=== PATIENT | male | born 1945 | race Caucasian/White ===

== ENCOUNTER 2017-03-23 14:29 | Inpatient (IN) | payer MEDICARE, MEDICAID ==
[~2017-03-23] VITALS: Ht 170.2 cm; Wt 69.9 kg
[2017-03-23] MEDS ORDERED: SODIUM CHLORIDE 0.9% 1,000 ML IV ONE (14:55)
[2017-03-23 15:19] LABS: HEMATOCRIT. 34.4 % (42.0-52.0); HEMOGLOBIN. 10.9 g/dL (14.0-18.0); MEAN CORPUSCULAR HEMOGLOBIN 21.9 pg (28.0-32.0); MEAN CORPUSCULAR VOLUME 69.5 fL (80.0-94.0); MEAN PLATELET VOLUME 8.2 fl (7.4-10.4); PLATELET 280 x1000/uL (130-400); RED BLOOD CELL COUNT 4.95 mill/uL (4.7-6.1); RED CELL DISTRIBUTION WIDTH 18.6 % (11.6-14.6)
[2017-03-23 15:33] LABS: CARBON DIOXIDE 25 mEq/L (21-32); TROPONIN I < 0.02 ng/mL (0.00-0.04)
[2017-03-23] MEDS ORDERED: ACETAMINOPHEN 325MG TABLET PO NR (15:39)
[2017-03-23 15:40] LABS: CHLORIDE 106 mEq/L (98-107)
[2017-03-23] MEDS ORDERED: SODIUM CHLORIDE 0.9% 1000ML BAG (SEPSIS BOLUS) IV NR (15:45)
[2017-03-23] MEDS ORDERED: LEVOFLOXACIN 750MG PREMIX 150 ML IV NR (15:45)
[2017-03-23 16:47] LABS: ATYPICAL LYMPHOCYTES 1; PLATELET ESTIMATE NORMAL
[2017-03-23 17:59] LABS: CLARITY URINE CLEAR (CLEAR); COLOR URINE YELLOW (YELLOW); GLUCOSE URINE NEGATIVE (NEGATIVE); KETONES URINE NEGATIVE (NEGATIVE); LEUKOCYTE ESTERASE URINE NEGATIVE (NEGATIVE); NITRITE URINE NEGATIVE (NEGATIVE); OCCULT BLOOD URINE NEGATIVE (NEGATIVE); PROTEIN URINE NEGATIVE (NEGATIVE); SPECIFIC GRAVITY URINE 1.014 (1.005-1.030)
[2017-03-23] MEDS ORDERED: DOCUSATE SODIUM 100MG CAPSULE PO PRN (21:00)
[2017-03-23] MEDS ORDERED: HYDROMORPHONE HCL/PF 2MG/ML CPJ IV PRN ×2 (21:00)
[2017-03-23] MEDS ORDERED: GUAIFENESIN 200MG/10ML SUGAR FREE UDC PO PRN (21:00)
[2017-03-23] MEDS ORDERED: MAGNESIUM/ALUMINUM HYDROXIDE/SIMETHICONE 30ML UDC PO PRN (21:00)
[2017-03-23] MEDS ORDERED: IPRATROPIUM/ALBUTEROL 0.5-3(2.5)MG/3ML NEB INH PRN (21:00)
[2017-03-23] MEDS ORDERED: ONDANSETRON HCL 4MG/2ML VIAL IV PRN (21:00)
[2017-03-23] MEDS ORDERED: HYDROCODONE/ACETAMINOPHEN 5/325MG TABLET PO PRN (21:00)
[2017-03-23] MEDS ORDERED: LORAZEPAM 2MG/ML CPJ IV PRN (21:00)
[2017-03-23] MEDS ORDERED: NA PHOS,M-B/NA PHOS,DI-BA ENEMA 118ML PR PRN (21:00)
[2017-03-23] MEDS ORDERED: CLONIDINE 0.1MG TABLET PO PRN (21:00)
[2017-03-23] MEDS ORDERED: ACETAMINOPHEN 325MG TABLET PO PRN (21:00)
[2017-03-23] MEDS ORDERED: DIPHENHYDRAMINE 50MG/ML VIAL IV PRN (21:00)
[2017-03-23 21:52] VITALS: BP 150/80
[2017-03-23 22:00] VITALS: BP 150/81
[2017-03-23 23:13] LABS: CHLORIDE 112 mEq/L (98-107)
[2017-03-23 23:18] LABS: CARBON DIOXIDE 25 mEq/L (21-32)
[2017-03-23 23:23] LABS: TROPONIN I < 0.02 ng/mL (0.00-0.04)
[2017-03-24] VITALS: BP 148/81
[2017-03-24] MEDS: SODIUM CHLORIDE 0.45% 1,000 ML IV SCH ×3 (00:21→21:32)
[2017-03-24] MEDS ORDERED: PNEUMOCOCCAL 23-VAL P-SAC VAC 0.5 ML IM ONE (02:15)
[2017-03-24 04:00] VITALS: BP 147/90
[2017-03-24 06:05] LABS: BASOPHILS % 0.6 % (0.0-2.0); EOSINOPHILS % 1.7 % (0.0-5.0); HEMATOCRIT. 32.1 % (42.0-52.0); HEMOGLOBIN. 10.1 g/dL (14.0-18.0); LYMPHOCYTES % 15.6 % (20.0-50.0); MEAN CORPUSCULAR HEMOGLOBIN 21.8 pg (28.0-32.0); MEAN CORPUSCULAR VOLUME 69.7 fL (80.0-94.0); MEAN PLATELET VOLUME 8.4 fl (7.4-10.4); MONOCYTES % 9.5 % (2.0-8.0); NEUTROPHILS % 72.6 % (40.0-76.0); PLATELET 250 x1000/uL (130-400); RED BLOOD CELL COUNT 4.61 mill/uL (4.7-6.1); RED CELL DISTRIBUTION WIDTH 17.9 % (11.6-14.6)
[2017-03-24 06:56] LABS: CHLORIDE 111 mEq/L (98-107)
[2017-03-24 07:22] LABS: CARBON DIOXIDE 24 mEq/L (21-32); HDL CHOLESTEROL 35 mg/dL (40-59); LDL CHOLESTEROL 56 mg/dL (5-100); TROPONIN I < 0.02 ng/mL (0.00-0.04)
[2017-03-24 08:00] VITALS: BP 133/73
[2017-03-24] MEDS: ENOXAPARIN 40MG/0.4ML SYR SUBCUT SCH (09:04)
[2017-03-24] MEDS ORDERED: HYDROCODONE/ACETAMINOPHEN 5/325MG TABLET PO PRN (10:45)
[2017-03-24] MEDS ORDERED: DEXT 5%/0.45% NACL KCL 10MEQ/L 1,000 ML IV ONE (10:45)
[2017-03-24 12:00] VITALS: BP 157/90
[2017-03-24] MEDS: IPRATROPIUM/ALBUTEROL 0.5-3(2.5)MG/3ML NEB HHN SCH ×2 (13:45→21:11)
[2017-03-24 16:00] VITALS: BP 132/71
[2017-03-24] MEDS ORDERED: LEVOFLOXACIN 500MG PREMIX 100 ML IV SCH ×2 (16:00→18:00)
[2017-03-24 20:00] VITALS: BP 139/79
[2017-03-24] MEDS: GUAIFENESIN 600MG ER TABLET PO SCH (21:31)
[2017-03-25] VITALS: BP 136/75
[2017-03-25] MEDS ORDERED: FISH OIL (02:20)
[2017-03-25] MEDS ORDERED: OMEP20CA10 PO (02:20)
[2017-03-25] MEDS ORDERED: METO-293 PO (02:20)
[2017-03-25] MEDS ORDERED: GEMF600T3 PO (02:20)
[2017-03-25] MEDS: IPRATROPIUM/ALBUTEROL 0.5-3(2.5)MG/3ML NEB HHN SCH ×2 (03:47→08:35)
[2017-03-25 04:00] VITALS: BP 124/66
[2017-03-25 08:00] VITALS: BP 157/77
[2017-03-25] MEDS: GUAIFENESIN 600MG ER TABLET PO SCH (09:41)
[2017-03-25] MEDS: ENOXAPARIN 40MG/0.4ML SYR SUBCUT SCH (09:42)
== END 2017-03-25 12:00 | disposition home or self-care (01) | DRG 177 ==
LOC: ER 14:31 → 5WST 18:59
PROVIDERS: ADMIT Internal Medicine; ATTEND Internal Medicine
DX: J69.0 Pneumonitis due to inhalation of food and vomit (principal); G93.41 Metabolic encephalopathy; J96.00 Acute respiratory failure, unspecified whether with hypoxia or hypercapnia; E43 Unspecified severe protein-calorie malnutrition; E86.0 Dehydration; D63.8 Anemia in other chronic diseases classified elsewhere; M25.562 Pain in left knee; M25.561 Pain in right knee; W18.39XA Other fall on same level, initial encounter; N40.0 Benign prostatic hyperplasia without lower urinary tract symptoms; F41.9 Anxiety disorder, unspecified; D50.9 Iron deficiency anemia, unspecified; H91.90 Unspecified hearing loss, unspecified ear; Z68.24 Body mass index [BMI] 24.0-24.9, adult; Z87.01 Personal history of pneumonia (recurrent); Y93.89 Activity, other specified; Y92.89 Other specified places as the place of occurrence of the external cause; Y99.8 Other external cause status; K59.00 Constipation, unspecified
CPT/HCPCS: 36415; 70450; 71010; 73562; 80048; 80053; 80061; 81003; 83605; 84484; 85025; 85730; 87040; 87086; 90732; 92610; 93005; 94640; 94664; 96361; 96365; 96366; 99285; J1650; J1956; J7030; J7620

== ENCOUNTER 2019-05-28 11:33 | Inpatient (IN) | payer MEDICARE, MEDICAID ==
[~2019-05-28] VITALS: Ht 167.6 cm; Wt 78.9 kg
[~2019-05-28 11:33] MED LIST: FISH OIL; GEMF600T5 PO; METO-293 PO; OMEP20CA5 PO
[2019-05-28] MEDS ORDERED: ONDANSETRON HCL 4MG/2ML INJ IV STA (15:10)
[2019-05-28] MEDS ORDERED: MORPHINE SULFATE 4 MG/ML CPJ (NOT FOR IM USE) IV STA (15:10)
[2019-05-28] MEDS ORDERED: SODIUM CHLORIDE 0.9% 1,000 ML IV ONE (15:10)
[2019-05-28] MEDS ORDERED: PANTOPRAZOLE SODIUM 40 MG/VIAL IV ONE (15:15)
[2019-05-28 15:26] LABS: BASOPHILS % 0.3 % (0.0-2.0); EOSINOPHILS % 0.7 % (0.0-5.0); HEMOGLOBIN. 12.2 g/dL (14.0-18.0); MEAN CORPUSCULAR HEMOGLOBIN 25.1 pg (28.0-32.0); MEAN CORPUSCULAR VOLUME 78.1 fL (80.0-94.0); MEAN PLATELET VOLUME 8.3 fl (7.4-10.4); MONOCYTES % 7.2 % (2.0-8.0); NEUTROPHILS % 82.8 % (40.0-76.0); PLATELET 365 x1000/uL (130-400); RED BLOOD CELL COUNT 4.86 mill/uL (4.7-6.1)
[2019-05-28 15:29] LABS: CHLORIDE 112 mEq/L (98-107)
[2019-05-28 15:32] LABS: PARTIAL THROMBOPLASTIN TIME 34.8 sec (23.4-31.0); PROTHROMBIN TIME 10.5 sec (9.6-11.0)
[2019-05-28 17:03] LABS: CLARITY URINE CLEAR (CLEAR); COLOR URINE YELLOW (YELLOW); KETONES URINE NEGATIVE (NEGATIVE); LEUKOCYTE ESTERASE URINE NEGATIVE (NEGATIVE); NITRITE URINE NEGATIVE (NEGATIVE); OCCULT BLOOD URINE NEGATIVE (NEGATIVE); PROTEIN URINE NEGATIVE (NEGATIVE); SPECIFIC GRAVITY URINE 1.022 (1.005-1.030); UROBILINOGEN URINE 0.2 E.U./dL (0.2-1.0)
[2019-05-28] MEDS ORDERED: ACETAMINOPHEN 325MG TABLET PO PRN (20:30)
[2019-05-28] MEDS ORDERED: MORPHINE SULFATE 2 MG/ML CPJ (NOT FOR IM USE) IV PRN (20:30)
[2019-05-28] MEDS ORDERED: ONDANSETRON HCL 4MG/2ML INJ IV PRN (20:30)
[2019-05-28] MEDS ORDERED: ZOLPIDEM TARTRATE 5MG TABLET PO PRN (21:00)
[2019-05-28] MEDS: DEXT 5%/0.45% NACL 1000ML 1,000 ML IV SCH (21:27)
[2019-05-28 23:05] VITALS: BP 132/56
[2019-05-28 23:51] VITALS: BP 132/56
[2019-05-29] MEDS: DEXT 5%/0.45% NACL 1000ML 1,000 ML IV SCH (01:16)
[2019-05-29 04:00] VITALS: BP 129/55
[2019-05-29] MEDS ORDERED: PANTOPRAZOLE 40MG DR TABLET PO SCH (07:10)
[2019-05-29 08:00] VITALS: BP 128/71
[2019-05-29 08:33] LABS: BASOPHILS % 0.4 % (0.0-2.0); EOSINOPHILS % 1.9 % (0.0-5.0); HEMATOCRIT. 32.6 % (42.0-52.0); HEMOGLOBIN. 10.5 g/dL (14.0-18.0); MEAN CORPUSCULAR HEMOGLOBIN 25.1 pg (28.0-32.0); MEAN CORPUSCULAR VOLUME 77.9 fL (80.0-94.0); MEAN PLATELET VOLUME 8.1 fl (7.4-10.4); MONOCYTES % 8.8 % (2.0-8.0); NEUTROPHILS % 72.9 % (40.0-76.0); PLATELET 367 x1000/uL (130-400); RED BLOOD CELL COUNT 4.19 mill/uL (4.7-6.1); RED CELL DISTRIBUTION WIDTH 15.8 % (11.6-14.6)
[2019-05-29 12:00] VITALS: BP 151/69
[2019-05-29 16:00] VITALS: BP 135/88
[2019-05-29 20:00] VITALS: BP 129/68
[2019-05-29] MEDS: PANTOPRAZOLE SODIUM 40 MG/VIAL IV SCH (22:13)
[2019-05-30] VITALS: BP 130/68
[2019-05-30] MEDS: DEXT 5%/0.45% NACL 1000ML 1,000 ML IV SCH ×2 (02:30→22:26)
[2019-05-30 04:00] VITALS: BP 132/77
[2019-05-30 07:18] LABS: BASOPHILS % 0.5 % (0.0-2.0); EOSINOPHILS % 2.4 % (0.0-5.0); HEMATOCRIT. 32.5 % (42.0-52.0); HEMOGLOBIN. 10.7 g/dL (14.0-18.0); MEAN CORPUSCULAR HEMOGLOBIN 25.4 pg (28.0-32.0); MEAN CORPUSCULAR VOLUME 77.1 fL (80.0-94.0); MONOCYTES % 7.5 % (2.0-8.0); NEUTROPHILS % 68.6 % (40.0-76.0); PLATELET 364 x1000/uL (130-400); RED BLOOD CELL COUNT 4.22 mill/uL (4.7-6.1); RED CELL DISTRIBUTION WIDTH 15.7 % (11.6-14.6)
[2019-05-30 07:21] LABS: PROTHROMBIN TIME 10.3 sec (9.6-11.0)
[2019-05-30 08:00] VITALS: BP 129/71
[2019-05-30 08:17] LABS: CHLORIDE 114 mEq/L (98-107)
[2019-05-30 08:28] LABS: TOTAL IRON BINDING CAPACITY 223 ug/dL (250-450)
[2019-05-30 10:08] LABS: VITAMIN B12 SERUM 970 pg/mL (211-911)
[2019-05-30] MEDS: PANTOPRAZOLE SODIUM 40 MG/VIAL IV SCH ×2 (10:11→20:58)
[2019-05-30 10:43] LABS: FOLIC ACID (FOLATE) SERUM > 20.00 ng/mL (>5.38)
[2019-05-30 12:00] VITALS: BP 129/63
[2019-05-30] MEDS ORDERED: IOHEXOL-300 100 ML BOTTLE ONE (15:09)
[2019-05-30 16:00] VITALS: BP 143/73
[2019-05-30 20:00] VITALS: BP 157/80
[2019-05-31] VITALS: BP 128/68
[2019-05-31 04:00] VITALS: BP 126/76
[2019-05-31 06:56] LABS: CHLORIDE 111 mEq/L (98-107)
[2019-05-31 07:02] LABS: BASOPHILS % 0.6 % (0.0-2.0); EOSINOPHILS % 4.1 % (0.0-5.0); HEMATOCRIT. 32.3 % (42.0-52.0); HEMOGLOBIN. 10.7 g/dL (14.0-18.0); LYMPHOCYTES % 19.4 % (20.0-50.0); MEAN CORPUSCULAR HEMOGLOBIN 25.5 pg (28.0-32.0); MEAN CORPUSCULAR VOLUME 76.9 fL (80.0-94.0); MEAN PLATELET VOLUME 7.7 fl (7.4-10.4); MONOCYTES % 8.1 % (2.0-8.0); NEUTROPHILS % 67.8 % (40.0-76.0); PLATELET 374 x1000/uL (130-400); RED BLOOD CELL COUNT 4.21 mill/uL (4.7-6.1); RED CELL DISTRIBUTION WIDTH 15.5 % (11.6-14.6)
[2019-05-31 08:00] VITALS: BP 142/75
[2019-05-31] MEDS: DEXT 5%/0.45% NACL 1000ML 1,000 ML IV SCH ×2 (09:00→22:16)
[2019-05-31] MEDS: PANTOPRAZOLE SODIUM 40 MG/VIAL IV SCH ×2 (09:04→20:36)
[2019-05-31 12:00] VITALS: BP 136/75
[2019-05-31 16:00] VITALS: BP 153/73
[2019-05-31] MEDS ORDERED: MIDAZOLAM HCL 5 MG/5 ML VIAL ONE (16:05)
[2019-05-31] MEDS ORDERED: FENTANYL CITRATE/PF 50MCG/ML 2ML VIAL ONE (16:05)
[2019-05-31] MEDS ORDERED: SIMETHICONE 40 MG/0.6 ML 30ML ONE (16:05)
[2019-05-31] MEDS ORDERED: MIDAZOLAM HCL 5 MG/5 ML VIAL IV PRN (16:14)
[2019-05-31] MEDS ORDERED: FENTANYL CITRATE/PF 50MCG/ML 2ML VIAL IV PRN (16:16)
[2019-05-31 20:00] VITALS: BP 139/74
[2019-06-01] VITALS: BP 135/75
[2019-06-01 04:00] VITALS: BP 139/72
[2019-06-01] MEDS: DEXT 5%/0.45% NACL 1000ML 1,000 ML IV SCH ×2 (05:57→13:03)
[2019-06-01 07:55] LABS: BASOPHILS % 0.9 % (0.0-2.0); EOSINOPHILS % 4.3 % (0.0-5.0); HEMATOCRIT. 33.2 % (42.0-52.0); HEMOGLOBIN. 10.8 g/dL (14.0-18.0); LYMPHOCYTES % 19.8 % (20.0-50.0); MEAN CORPUSCULAR HEMOGLOBIN 24.9 pg (28.0-32.0); MEAN CORPUSCULAR VOLUME 76.7 fL (80.0-94.0); MEAN PLATELET VOLUME 7.7 fl (7.4-10.4); MONOCYTES % 9.2 % (2.0-8.0); NEUTROPHILS % 65.8 % (40.0-76.0); PLATELET 404 x1000/uL (130-400); RED BLOOD CELL COUNT 4.33 mill/uL (4.7-6.1); RED CELL DISTRIBUTION WIDTH 15.5 % (11.6-14.6)
[2019-06-01 08:19] VITALS: BP 137/71
[2019-06-01 08:20] LABS: CHLORIDE 114 mEq/L (98-107)
[2019-06-01] MEDS: PANTOPRAZOLE SODIUM 40 MG/VIAL IV SCH (08:58)
[2019-06-01 12:00] VITALS: BP 128/79
[2019-06-01] MEDS ORDERED: SUCRALFATE 1G TABLET PO SCH (12:15)
[2019-06-01 16:00] VITALS: BP 138/76
[2019-06-01 16:39] VITALS: BP 138/76
[2019-06-02 15:06] LABS: FERRITIN 47 ng/mL (22-322)
== END 2019-06-01 18:05 | disposition home or self-care (01) | DRG 377 ==
LOC: ER 11:33 → 8WST 19:43 → EDBEDREQTM 19:49 → EDBEDREQ 19:49 → ENRESERV 21:51
PROVIDERS: ADMIT Internal Medicine; ATTEND Internal Medicine
PROC: 0DB98ZX Excision of Duodenum, Via Natural or Artificial Opening Endoscopic, Diagnostic (ICD-10-PCS; principal; 2019-05-31)
PROC: 0DB68ZX Excision of Stomach, Via Natural or Artificial Opening Endoscopic, Diagnostic (ICD-10-PCS; 2019-05-31)
DX: K29.51 Unspecified chronic gastritis with bleeding (principal); N17.0 Acute kidney failure with tubular necrosis; E44.1 Mild protein-calorie malnutrition; K26.4 Chronic or unspecified duodenal ulcer with hemorrhage; K22.11 Ulcer of esophagus with bleeding; K57.31 Diverticulosis of large intestine without perforation or abscess with bleeding; K52.9 Noninfective gastroenteritis and colitis, unspecified; D64.9 Anemia, unspecified; N40.0 Benign prostatic hyperplasia without lower urinary tract symptoms; F41.9 Anxiety disorder, unspecified; E87.8 Other disorders of electrolyte and fluid balance, not elsewhere classified; K44.9 Diaphragmatic hernia without obstruction or gangrene; E78.5 Hyperlipidemia, unspecified; Z87.01 Personal history of pneumonia (recurrent); Z68.28 Body mass index [BMI] 28.0-28.9, adult; Z87.11 Personal history of peptic ulcer disease; Z79.899 Other long term (current) drug therapy
CPT/HCPCS: 36415; 71045; 71260; 74177; 80048; 82270; 82607; 82728; 82746; 82962; 83540; 83550; 84484; 88305; 88312; 88313; 93005; 96374; 99285; C9113; J2250; J2270; J2405; J3010; J7030; Q9967

== ENCOUNTER 2020-10-05 15:53 | Inpatient (IN) | payer MEDICARE, MEDICAID ==
[~2020-10-05] VITALS: Ht 165.1 cm; Wt 49.9 kg
[~2020-10-05 15:53] MED LIST changes: -FISH OIL; +OMEP20CA14 PO; -OMEP20CA5 PO
[2020-10-05] MEDS ORDERED: ONDANSETRON HCL 4MG/2ML INJ IV STA (17:35)
[2020-10-05 18:03] LABS: HEMATOCRIT. 37.8 % (42.0-52.0); HEMOGLOBIN. 12.2 g/dL (14.0-18.0); MEAN CORPUSCULAR HEMOGLOBIN 25.4 pg (28.0-32.0); MEAN CORPUSCULAR VOLUME 78.4 fL (80.0-94.0); MEAN PLATELET VOLUME 9.3 fl (7.4-10.4); PLATELET 259 x1000/uL (130-400); RED BLOOD CELL COUNT 4.82 mill/uL (4.7-6.1); RED CELL DISTRIBUTION WIDTH 19.7 % (11.6-14.6)
[2020-10-05 18:09] LABS: CHLORIDE 96 mEq/L (98-107)
[2020-10-05 18:11] LABS: PROTHROMBIN TIME 10.4 sec (9.6-11.0)
[2020-10-05] MEDS ORDERED: SODIUM CHLORIDE 0.9% 1,000 ML IV SCH (19:15)
[2020-10-05] MEDS ORDERED: PIPERACILLIN/TAZ 3.375G PREMIX 50 ML IV SCH (19:15)
[2020-10-05 19:19] LABS: PLATELET ESTIMATE NORMAL
[2020-10-05] MEDS ORDERED: ACETAMINOPHEN 325MG TABLET PO PRN (22:00)
[2020-10-05] MEDS ORDERED: IPRATROPIUM/ALBUTEROL 0.5-3(2.5)MG/3ML NEB NEB PRN (22:00)
[2020-10-05] MEDS ORDERED: HYDROCODONE/ACETAMINOPHEN 5/325MG TABLET PO PRN (22:00)
[2020-10-06 00:06] LABS: CHLORIDE 102 mEq/L (98-107)
[2020-10-06 00:18] LABS: CREATINE KINASE 15 IU/L (39-308)
[2020-10-06 00:22] LABS: CREATINE KINASE MB FRACTION < 1.0 ng/mL (0.5-3.6)
[2020-10-06] MEDS: SODIUM CHLORIDE 0.9% 1,000 ML IV SCH ×2 (00:45→15:07)
[2020-10-06] MEDS: ONDANSETRON HCL 4MG/2ML INJ IV PRN ×2 (00:45→13:09)
[2020-10-06 14:26] LABS: BASOPHILS % 0.2 % (0.0-2.0); EOSINOPHILS % 0.4 % (0.0-5.0); HEMOGLOBIN. 9.9 g/dL (14.0-18.0); LYMPHOCYTES % 12.9 % (20.0-50.0); MEAN CORPUSCULAR HEMOGLOBIN 25.9 pg (28.0-32.0); MEAN CORPUSCULAR VOLUME 78.3 fL (80.0-94.0); MEAN PLATELET VOLUME 9.1 fl (7.4-10.4); MONOCYTES % 9.2 % (2.0-8.0); NEUTROPHILS % 77.3 % (40.0-76.0); PLATELET 262 x1000/uL (130-400); RED BLOOD CELL COUNT 3.83 mill/uL (4.7-6.1); RED CELL DISTRIBUTION WIDTH 19.7 % (11.6-14.6)
[2020-10-06 14:44] LABS: CREATINE KINASE 19 IU/L (39-308)
[2020-10-06 14:45] LABS: CREATINE KINASE MB FRACTION < 1.0 ng/mL (0.5-3.6)
[2020-10-06] MEDS: PIPERACILLIN/TAZ 3.375G PREMIX 50 ML IV SCH ×2 (15:08→22:24)
[2020-10-06 15:50] LABS: TOTAL IRON BINDING CAPACITY 231 ug/dL (250-450)
[2020-10-06 16:14] LABS: FOLIC ACID (FOLATE) SERUM 18.4 ng/mL (>5.38)
[2020-10-06] MEDS ORDERED: PANTOPRAZOLE 40MG DR TABLET PO SCH (17:00)
[2020-10-06] MEDS: SUCRALFATE 1 G/10 ML UDC PO SCH ×2 (17:56→23:31)
[2020-10-07] MEDS: SUCRALFATE 1 G/10 ML UDC PO SCH ×5 (06:18→21:14)
[2020-10-07] MEDS ORDERED: IPRATROPIUM/ALBUTEROL 0.5-3(2.5)MG/3ML NEB NEB PRN (06:30)
[2020-10-07] MEDS ORDERED: HYDROCODONE/ACETAMINOPHEN 5/325MG TABLET PO PRN (06:30)
[2020-10-07] MEDS ORDERED: ONDANSETRON HCL 4MG/2ML INJ IV PRN (06:30)
[2020-10-07] MEDS ORDERED: ACETAMINOPHEN 325MG TABLET PO PRN (06:30)
[2020-10-07] MEDS ORDERED: PIPERACILLIN/TAZ 3.375G PREMIX 50 ML IV SCH (06:30)
[2020-10-07] MEDS: SODIUM CHLORIDE 0.9% 1,000 ML IV SCH (08:19)
[2020-10-07] MEDS: PANTOPRAZOLE 40MG DR TABLET PO SCH ×2 (10:07→21:14)
[2020-10-07] MEDS: PIPERACILLIN/TAZOBACTAM 3.375 G in DEXT 5% WATER 100 ML IV SCH ×2 (12:00→17:52)
[2020-10-07 12:55] VITALS: BP_SYST 123; BP_SYST 133; BP_DIAS 60
[2020-10-07] MEDS ORDERED: IRON SUCROSE COMPLEX 100 MG/5 ML ML IV SCH (15:00)
[2020-10-07 16:00] VITALS: BP 133/65
[2020-10-07 16:16] VITALS: BP 133/65
[2020-10-07] MEDS ORDERED: METR-167 MT (19:35)
[2020-10-07] MEDS ORDERED: LEVO500T89 MT (19:35)
[2020-10-07 20:00] VITALS: BP 122/60
== END 2020-10-07 22:15 | disposition home or self-care (01) | DRG 871 ==
LOC: ER 15:53 → EDBEDREQ 17:44 → MICUSO 21:11 → EDBEDREQ 21:14 → EDBEDREQTM 21:14 → ER 10-06 20:46 → 7EST 10-07 11:24 → 6EST 10-07 18:51
PROVIDERS: ADMIT Internal Medicine; ATTEND Internal Medicine
DX: A41.9 Sepsis, unspecified organism (principal); N17.0 Acute kidney failure with tubular necrosis; Z68.1 Body mass index [BMI] 19.9 or less, adult; E44.0 Moderate protein-calorie malnutrition; K29.80 Duodenitis without bleeding; E86.0 Dehydration; E11.9 Type 2 diabetes mellitus without complications; Z20.828 Contact with and (suspected) exposure to other viral communicable diseases; R50.9 Fever, unspecified; D72.829 Elevated white blood cell count, unspecified; R65.20 Severe sepsis without septic shock; R63.0 Anorexia; D50.9 Iron deficiency anemia, unspecified; Z91.14 Patient's other noncompliance with medication regimen; Z79.899 Other long term (current) drug therapy
CPT/HCPCS: 36415; 71045; 74176; 80048; 80053; 80061; 82550; 82553; 82607; 82728; 82746; 82962; 83540; 83550; 83605; 83735; 84145; 84443; 84484; 85025; 85044; 87635; 93005; 96361; 96365; 96375; 99291; J2405; J2543; J7040; J7060